=== PATIENT | male | born 1980 | race American Indian/Alaskan Native ===

== ENCOUNTER 2017-04-09 22:35 | Emergency (ER) | payer SELFPAY ==
[2017-04-09 22:59] VITALS: BP 117/75
== END 2017-04-10 03:50 | disposition left against medical advice (07) ==
LOC: ED 22:35
DX: M79.89 Other specified soft tissue disorders (principal); Z53.21 Procedure and treatment not carried out due to patient leaving prior to being seen by health care provider

== ENCOUNTER 2017-04-12 23:35 | Inpatient (IN) | payer OTHER ==
--- NOTE | 2017-04-13 02:04 | XRay Report ---
FINAL REPORT EXAM: XR ELBOW 3+V RT HISTORY: infection not improving rt elbow TECHNIQUE: Three views of the right elbow PRIORS: None. FINDINGS: The bones are normally aligned and mineralized. The joint spaces are well-preserved. There is no evidence of acute fracture. There is posterior and lateral soft tissue. IMPRESSION: Posterior and lateral soft tissue swelling. No radiographic evidence of osteomyelitis
[2017-04-13] MEDS ORDERED: ZOFRAN IV ONE (02:40)
[2017-04-13] MEDS ORDERED: DILAUDID IV ONE (02:40)
[2017-04-13] MEDS ORDERED: CLEOCIN 900 MG/50 mL 900 MG/50 ML BAG IV ONE (02:40)
--- NOTE | 2017-04-13 02:40 | Emergency Department Report ---
- General Chief complaint: Skin/Abscess/Foreign Body Stated complaint: ELBOW SWOLLEN/INFECTED Time Seen by Provider: 04/13/17 02:39 Source: patient Mode of arrival: Ambulatory Limitations: No Limitations - History of Present Illness Initial comments: Patient here report that he has right elbow swelling with drainage. He states that he has some boils to his right armpit and right thigh. Patient said he had tattoos to his left arm 2 weeks ago and he had done over 3 days to his right upper extremity which was March 31, April 01 and 04/02/2017. He said that he noticed that his elbow was painful and draining pus and he went to urgent care 3 days ago where they put him on Bactrim DS and Tylenol 3 but he reports that he is not getting any better. He reports the pain to his elbow is 10 out of 10 and throbbing. Patient Tylenol 3 without any help. He reports portal to right axilla is only painful when it's touch and to left thigh painful to touch. Denies any history of any abscess. He denies any medical problem. He said his immunizations up-to-date. Patient is allergic to penicillin. Right elbow worse with movement better with rest. MD complaint: abscess/boil, discoloration Onset/Timin -: days(s) Tetanus Up to Date: yes Location: RUE (right elbow, right axilla), RLE (right thigh) Severity: severe Severity scale (0 -10): 10 Quality: constant, other (Lui) Consistency: constant Improves with: immobilization, rest Worsens with: palpation, movement Context: other (since that he got to 2 weeks ago to his right upper extremity.) Associated symptoms: athralgias (right elbow) Treatments Prior to Arrival: attempted to drain pus at, antibiotic, prescription analgesic - Related Data Home Medications Medication Instructions Recorded Confirmed Last Taken Bactrim DS TAB 1 tab PO BID 04/13/17 04/13/17 04/13/17 Prednisone 20 mg PO DAILY 04/13/17 04/13/17 04/13/17 Tylenol /Codeine # 3 tab 1 tab PO BID PRN 04/13/17 04/13/17 04/13/17 Allergies Allergy/AdvReac Type Severity Reaction Status Date / Time Penicillins Allergy Hives Verified 04/09/17 23:46 Abscess Boil HPI - HPI Chief Complaint: Skin/Abscess/Foreign Body Stated Complaint: ELBOW SWOLLEN/INFECTED Time Seen by Provider: 04/13/17 02:39 Home Medications: Home Medications Medication Instructions Recorded Confirmed Last Taken Bactrim DS TAB 1 tab PO BID 04/13/17 04/13/17 04/13/17 Prednisone 20 mg PO DAILY 04/13/17 04/13/17 04/13/17 Tylenol /Codeine # 3 tab 1 tab PO BID PRN 04/13/17 04/13/17 04/13/17 Allergies/Adverse Reactions: Allergies Allergy/AdvReac Type Severity Reaction Status Date / Time Penicillins Allergy Hives Verified 04/09/17 23:46 ED Review of Systems ROS: Stated complaint: ELBOW SWOLLEN/INFECTED Other details as noted in HPI Comment: All other systems reviewed and negative Constitutional: denies: chills, fever Respiratory: no symptoms reported Cardiovascular: denies: chest pain, palpitations, edema, syncope Gastrointestinal: denies: abdominal pain, nausea, vomiting Musculoskeletal: joint swelling, arthralgia. denies: back pain, myalgia Skin: other (boils) Neurological: denies: headache, weakness, numbness, paresthesias, confusion, abnormal gait, vertigo ED Past Medical Hx - Past Medical History Previous Medical History?: No - Surgical History Past Surgical History?: Yes Additional Surgical History: screw in neck - Family History Family history: no significant - Social History Smoking Status: Current Every Day Smoker Substance Use Type: Marijuana Other Social History: Single male - Medications Home Medications: Home Medications Medication Instructions Recorded Confirmed Last Taken Type Bactrim DS TAB 1 tab PO BID 04/13/17 04/13/17 04/13/17 History Prednisone 20 mg PO DAILY 04/13/17 04/13/17 04/13/17 History Tylenol /Codeine # 3 tab 1 tab PO BID PRN 04/13/17 04/13/17 04/13/17 History ED Physical Exam - General Limitations: No Limitations General appearance: alert, in no apparent distress - Head Head exam: Present: atraumatic, normocephalic, normal inspection - Eye Eye exam: Present: normal appearance, PERRL, EOMI. Absent: periorbital swelling , periorbital tenderness Pupils: Present: normal accommodation - ENT ENT exam: Present: normal exam, normal orophraynx, mucous membranes moist, TM's normal bilaterally, normal external ear exam - Neck Neck exam: Present: normal inspection, full ROM. Absent: tenderness, meningismus, lymphadenopathy - Respiratory Respiratory exam: Present: normal lung sounds bilaterally. Absent: respiratory distress, chest wall tenderness - Cardiovascular Cardiovascular Exam: Present: regular rate, normal rhythm, normal heart sounds - GI/Abdominal GI/Abdominal exam: Present: soft, normal bowel sounds. Absent: distended, tenderness, guarding, rebound, rigid - Extremities Exam Extremities exam: Present: tenderness, normal capillary refill, joint swelling. Absent: normal inspection, full ROM, pedal edema, calf tenderness - Expanded Upper Extremity Exam Right General: Absent: normal inspection, laceration, abrasion, nail injury (#), foreign body, amputation, avulsion Shoulder Exam: Present: normal inspection, full ROM. Absent: tenderness, swelling, abrasion, laceration, ecchymosis, deformity, crepidus, dislocation, erythema, tenderness over AC joint Upper Arm exam: Present: normal inspection, full ROM. Absent: tenderness, swelling, abrasion, laceration, ecchymosis, deformity, crepidus, dislocation, erythema Elbow exam: Present: full ROM (FROM but painful with flexion and extension), tenderness, swelling, erythema, pain w/ pronation/supination, tenderness over radial head. Absent: normal inspection, abrasion, laceration, ecchymosis, deformity, crepidus, dislocation, effusion Forearm Wrist exam: Present: full ROM, swelling (mild swelling to proximal posterior forearm). Absent: normal inspection, tenderness, abrasion, laceration , ecchymosis, deformity, crepidus, dislocation, erythema, tenderness over anatomical snuff box, pain with axial thumb loading Hand Wrist exam: Present: normal inspection, full ROM. Absent: tenderness, swelling, abrasion, laceration, ecchymosis, deformity, crepidus, dislocation, erythema, amputation, nail avulsion, subungual hematoma Neuro motor exam: Present: wrist extension intact, thumb opposition intact, thumb IP flexion intact, thumb adduction intact, fingers 2-5 abduction intact Neurosensory exam: Present: 2-point discrimination, radial nerve intact, ulnar nerve intact, median nerve intact Vascular: Present: normal capillary refill, radial pulse, brachial pulse, ulnar pulse. Absent: vascular compromise, Pallo, pulse deficit radial art, pulse deficit ulnar art, pulse deficit brachial art - Back Exam Back exam: Present: normal inspection, full ROM. Absent: tenderness, CVA tenderness (R), CVA tenderness (L), muscle spasm, paraspinal tenderness, vertebral tenderness, rash noted - Neurological Exam Neurological exam: Present: alert, oriented X3, normal gait, reflexes normal. Absent: motor sensory deficit - Psychiatric Psychiatric exam: Present: normal affect, normal mood - Skin Skin exam: Present: warm, dry, erythema, other (multiple abscess) - Expanded Skin Exam Expanded Type of lesion: Present: abscess (patient with abscess to right elbow with 2 small open in that straining scant pus. Right elbow with minimal fluctuance minimal induration. Tender to palpate and very warm to touch comparing to left elbow. No restriction in movement. Elbow is painful when flexed and extended. Patient also with abscess to left axilla that indurated, dime size and tender to palpate, abortus size abscess to right proximal thigh that indurated nonfluctuant at erythema and tender to palpate.) Distribution of rash: RUE (right elbow and right axilla), RLE (right proximal thigh) Description of rash: Present: size (dime size area to right axilla and quarter size area to right proximal thigh), tenderness, erythematous, swelling, discharge (scant amount of drainage from right elbow), indurated (right axilla and right proximal thigh). Absent: petechial, purpuic, fluctuant ED Course Vital Signs 04/13/17 04/13/17 04/13/17 00:20 05:13 06:40 Temperature 98.6 F Pulse Rate 91 H 68 Respiratory 16 18 18 Rate Blood Pressure 110/66 Blood Pressure 110/66 131/78 [Left] O2 Sat by Pulse 100 98 98 Oximetry - Reevaluation(s) Reevaluation #1: 04/13/17 04:06 Patient received clindamycin 900 mg IV for infection, CBC revealed white count of 22 patient already had blood cultures collected and sent. Lab work drawn. Patient with abscesses and infection. I discussed with Dr. Mckeon patient presentation, lab and x-ray report and it was decided the patient will be admitted. This was discussed with patient and he reluctantly agreed. IV fluid normal saline started at 125 cc an hour Reevaluation #2: 04/13/17 04:[address] Avina who is the hospitalist and agrees to admit patient to inpatient for treatment of cellulitis, abscess. Reevaluation #3: 04/13/17 05:18 Patient is stable and receiving IV fluid. Lactic acid collected. No change in physical findings. 04/13/17 05:19 ED Medical Decision Making - Lab Data Result diagrams: 04/13/17 02:23 04/13/17 02:23 Lab Results 04/13/17 04/13/17 Range/Units 02:23 02:23 WBC 22.0 H (4.5-11.0) K/mm3 RBC 4.33 (3.65-5.03) M/mm3 Hgb 14.2 (11.8-15.2) gm/dl Hct 42.5 (35.5-45.6) % MCV 98 H (84-94) fl MCH 33 H (28-32) pg MCHC 33 (32-34) % RDW 14.2 (13.2-15.2) % Plt Count 304 (140-440) K/mm3 Sodium 138 (137-145) mmol/L Potassium 4.1 (3.6-5.0) mmol/L Chloride 98.8 (98-107) mmol/L Carbon Dioxide 23 (22-30) mmol/L Anion Gap 20 mmol/L BUN 18 (9-20) mg/dL Creatinine 0.8 (0.8-1.5) mg/dL Estimated GFR > 60 ml/min BUN/Creatinine Ratio 22.50 % Glucose 80 (75-100) mg/dL Calcium 9.2 (8.4-10.2) mg/dL Blood Cultures are pending - Radiology Data Radiology results: report reviewed Three-view x-ray of the right elbow reveals posterior and lateral soft tissue swelling no radiographic evidence of osteomyelitis. No fracture or dislocation noted. - Medical Decision Making ED course: Here with right elbow abscess after getting in tattoo he said he noticed that the site was getting infected and he went to urgent care 3 days ago and he was placed on Bactrim DS and Tylenol No. 3 and F this is not getting any better. He is also complaining of abscess to his right axilla and right upper thigh area. area to right axilla is dime size and indurated without any fluctuance and area to right thigh cellulitic with small opening to Center positive induration and no fluctuance. Patient with mild swelling to right elbow with 2 areas of open in an scant amount of serous draining. Right elbow when compared to left elbow is increase in temperature and mild erythema. He should have with full flexion and extension of elbow but he said it's very painful and worse with palpation. I spoke with Dr. Mckeon regarding patient presentation, lab findings and x-ray results and it was decided the patient will be admitted inpatient for treatment with IV antibiotic. This was discussed with patient and he was reluctant and finally decided that he will accept decision for him to be admitted and treated. All labs, x-rays result was discussed with patient. Patient refuses lactic acid briefly but then he agreed to have levels drawn. Patient said that he got infected from having tatoo to his right upper extremity over a 3 day. Diagnostic/labs: CBC revealed patient with white count elevated at 22, MCH/MCV mild elevated. Patient with slight shift to the left suggesting bacterial infection. BMP is normal, calcium is normal, lactic acid normal. Blood cultures 2 are pending. X-ray of right elbow reveals soft tissue swelling without any osteomyelitis/or bony abnormality Assessment/plan: 1. Cellulitis and abscess right upper extremity,elbow-areas already drained in and patient started on clindamycin 900 mg IV. IV fluid normal saline started at 1 25 mL an hour 2. Cellulitis multiple sites to right thigh and left axilla not ready to be drained due to no fluctuance-IV antibiotic infusing and warm compresses the site to facilitate soft then 3. Arthralgia right elbow-patient given Dilaudid 1 mg IV and Zofran 4 mg IV for relief of pain. 4. Leukocytosis more than likely secondary to bacterial infection-patient on IV antibiotic. 5-decision was made to admit patient to inpatient hospital for treatment of cellulitis and abscess that failed outpatient therapy. Dr. Yara gaoist came to saw patient and admitted patient to hospital. Patient remained stable throughout ED course with normal vital signs and afebrile. He has no signs of sepsis and additional labs and medication ordered by Dr. Avina. Pt transferred to medical floor in stable condition. - Differential Diagnosis septic joint, osteomyelitis, cellulitis and abscess Critical care attestation.: If time is entered above; I have spent that time in minutes in the direct care of this critically ill patient, excluding procedure time. ED Disposition Clinical Impression: Cellulitis and abscess of unspecified site, Cellulitis of multiple sites, Arthralgia of right elbow Leukocytosis, unspecified Qualifiers: Leukocytosis type: unspecified Qualified Code(s): D72.829 - Elevated white blood cell count, unspecified Disposition: OP ADMIT IP TO THIS HOSP Is pt being admited?: Yes Does the pt Need Aspirin: No Condition: Stable
[2017-04-13] MEDS ORDERED: MARCAINE 0.5% INFILTRATI ONE (02:42)
[2017-04-13] MEDS ORDERED: NACL 0.9% IR ONE (02:42)
[2017-04-13 02:56] LABS: Hematocrit 42.5 % (35.5-45.6); Hemoglobin 14.2 gm/dl (11.8-15.2); Mean Corpuscular HGB Conc 33 % (32-34); Mean Corpuscular Hemoglobin 33 pg (28-32); Mean Corpuscular Volume 98 fl (84-94); Platelet Count 304 K/mm3 (140-440); Red Blood Count 4.33 M/mm3 (3.65-5.03); Red Cell Distribution Width 14.2 % (13.2-15.2)
[2017-04-13 03:13] LABS: Anion Gap 20 mmol/L; Blood Urea Nitrogen 18 mg/dL (9-20); Calcium 9.2 mg/dL (8.4-10.2); Carbon Dioxide 23 mmol/L (22-30); Chloride 98.8 mmol/L (98-107); Glucose 80 mg/dL (75-100); Potassium 4.1 mmol/L (3.6-5.0); Sodium 138 mmol/L (137-145)
[2017-04-13 04:19] LABS: Basophils % (Manual) 0 % (0.0-1.8); Blastocytes % (Manual) 0 %; Diff Status Complete; Eosinophils % (Manual) 0 % (0.0-4.3); Platelet Estimate Consistent w Auto; RBC Morphology Normal
[2017-04-13] MEDS: NACL 0.9% 1000 ML 1,000 ML IV SCH ×2 (04:28→15:09)
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
[2017-04-13] MEDS ORDERED: ZOFRAN IV PRN (05:49)
[2017-04-13] MEDS ORDERED: TYLENOL PO PRN (05:49)
[2017-04-13] MEDS ORDERED: MILK OF MAGNESIA PO PRN (05:49)
[2017-04-13] MEDS ORDERED: DULCOLAX PR PRN (05:49)
[2017-04-13] MEDS ORDERED: VANCOMYCIN VIAL IV SCH (06:00)
[2017-04-13] MEDS ORDERED: VANCOMYCIN PHARMACY TO DOSE IV SCH (06:00)
[2017-04-13] MEDS ORDERED: NACL 0.9% 1000 ML 1,000 ML IV SCH (06:00)
[2017-04-13] MEDS: VANCOMYCIN 1,250 MG in NACL 0.9% 250ML 250 ML IV SCH ×2 (08:03→20:02)
[2017-04-13] MEDS ORDERED: LOVENOX SUB-Q SCH (10:00)
[2017-04-13] MEDS: LOVENOX SUB-Q SCH (11:35)
[2017-04-13] MEDS: PERCOCET 5/325 PO PRN ×3 (11:41→22:10)
--- NOTE | 2017-04-13 12:15 | Event Note ---
Date: 04/13/17 Patient is 36 yo with cellulitis and sepsis. Continue Vancomycin. Continue current management.
--- NOTE | 2017-04-14 03:28 | Admit Criteria Form ---
Admission Criteria Documentation: SEPSIS and OTHER FEBRILE ILLNESS, W/O FOCAL INFECTION Clinical Indications for Admission to Inpatient Care ( Place 'X' for any and all applicable criteria): Admission is indicated for ANY ONE of the following (1)(2)(3)(4): [ ] I. Bacteremia [X]II. Suspected or identified specific infection requiring hospitalization (eg, meningitis, endocarditis) [ ]III. Hemodynamic instability [ ]IV. Altered mental status [ ]V. Failure or unavailability of outpatient antimicrobial treatment [ ]. Hypoxemia [ ]VII. Seizures [ ]VIII. High-risk febrile neutropenia [ ]IX. Need for parenteral antibiotic in patient who is likely to abuse vascular access device (eg, injection drug user) [A](7) [ ]X. Temperature greater than 104.9 degrees F (40.5 degrees C) (oral) [ ]XI. Inpatient admission required rather than observation care because of ANY ONE of the following: [ ]1) Specific infection identified that is too severe for outpatient treatment or observation care trial [ ]2) Metabolic disorder (eg, hypoglycemia, hyperglycemia, metabolic acidosis) that is severe or persistent [ ]3) Temperature greater than 103.1 degrees F (39.5 degrees C) ( oral) that is not responsive to observation care treatment [ ]4) IV fluid to replace significant ongoing (eg, for over 24 hours) losses (> 3 L/m2 per day) [ ]5) Supplemental oxygen or respiratory treatments for over 24 hours that is performable only in acute inpatient setting [ ]6) Parenteral nutrition regimen need that must be implemented on inpatient basis [ ]7) Strict or protective (eg, laminar flow) isolation [ ]8) Other condition, treatment or monitoring requiring inpatient admission Extended stay beyond goal length of stay may be needed for(1)(3) [ ]a) Sepsis or septic shock(22) [ ]b) Positive blood cultures [ ]c) Insufficient oral intake [ ]d) High-risk febrile neutropenia(29)(30) [ ]e) Continued fever and clinical instability [ ]f) Clinically active comorbid illness (e.g,heart failure, renal failure , diabetes) The original [facility] content created by Linda Stuart has been revised. The portions of the content which have been revised are identified through the use of italic text or in bold, and Linda Stuart has neither reviewed nor approved the modified material. All other unmodified content is copyright [facility]. Please see references footnoted in the original [facility] edition 2016 Admission Criteria Met: Yes
[2017-04-14] MEDS: PERCOCET 5/325 PO PRN ×4 (04:54→22:08)
[2017-04-14] MEDS: NACL 0.9% 1000 ML 1,000 ML IV SCH (04:56)
[2017-04-14] MEDS: VANCOMYCIN 1,250 MG in NACL 0.9% 250ML 250 ML IV SCH ×2 (05:35→18:37)
[2017-04-14] MEDS: LOVENOX SUB-Q SCH (09:47)
[2017-04-14 09:49] LABS: Basophils % (Auto) 0.3 % (0.0-1.8); Eosinophils % (Auto) 0.2 % (0.0-4.3); Hematocrit 38.9 % (35.5-45.6); Hemoglobin 12.9 gm/dl (11.8-15.2); Mean Corpuscular HGB Conc 33 % (32-34); Mean Corpuscular Hemoglobin 33 pg (28-32); Mean Corpuscular Volume 98 fl (84-94); Platelet Count 259 K/mm3 (140-440); Red Blood Count 3.95 M/mm3 (3.65-5.03); Red Cell Distribution Width 13.6 % (13.2-15.2); White Blood Count 18.5 K/mm3 (4.5-11.0)
[2017-04-14 10:03] LABS: Anion Gap 17 mmol/L; Blood Urea Nitrogen 10 mg/dL (9-20); Calcium 8.5 mg/dL (8.4-10.2); Carbon Dioxide 25 mmol/L (22-30); Chloride 99.6 mmol/L (98-107); Glucose 74 mg/dL (75-100); Potassium 3.6 mmol/L (3.6-5.0); Sodium 138 mmol/L (137-145)
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
[2017-04-15 05:31] LABS: Hematocrit 40.2 % (35.5-45.6); Hemoglobin 13.2 gm/dl (11.8-15.2); Mean Corpuscular HGB Conc 33 % (32-34); Mean Corpuscular Hemoglobin 32 pg (28-32); Mean Corpuscular Volume 98 fl (84-94); Platelet Count 256 K/mm3 (140-440); Red Blood Count 4.11 M/mm3 (3.65-5.03); Red Cell Distribution Width 13.4 % (13.2-15.2); White Blood Count 16.7 K/mm3 (4.5-11.0)
[2017-04-15 05:52] LABS: Anion Gap 21 mmol/L; Blood Urea Nitrogen 12 mg/dL (9-20); Calcium 8.4 mg/dL (8.4-10.2); Carbon Dioxide 22 mmol/L (22-30); Chloride 100.4 mmol/L (98-107); Glucose 62 mg/dL (75-100); Sodium 139 mmol/L (137-145)
[2017-04-15] MEDS: NACL 0.9% 1000 ML 1,000 ML IV SCH (06:19)
[2017-04-15] MEDS: VANCOMYCIN 1,250 MG in NACL 0.9% 250ML 250 ML IV SCH ×2 (06:19→17:10)
[2017-04-15] MEDS ORDERED: D50W (25GM) IV PRN (06:56)
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
[2017-04-15] MEDS: LOVENOX SUB-Q SCH (09:03)
[2017-04-15] MEDS ORDERED: D5NS 1,000 ML IV SCH (10:00)
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
[2017-04-15] MEDS ORDERED: LACTATED RINGERS 1,000 ML IV SCH (11:11)
[2017-04-15] MEDS ORDERED: PEPCID PO NR (11:11)
[2017-04-15] MEDS ORDERED: VERSED IV NR (11:11)
--- NOTE | 2017-04-15 11:11 | Anesthesia Day of Surgery ---
Anesthesia Day of Surgery - Day of Surgery Patient Examined: Yes Patient H&P Reviewed: Yes Patient is NPO: Yes
[2017-04-15] MEDS ORDERED: DILAUDID IV PRN (11:12)
--- NOTE | 2017-04-15 11:37 | Progress Note ---
Assessment and Plan Cellulitis right elbow With abscess. - Continue Vancomycin iv. - Consulted Dr. Bruce Castellanos, - s/p debridement with incision and drainage today. - wound cx growing Strep Aureus, wait for final result Leukoctosis secondary to cellulitis. - This is improving. WBC 16.7 today from 22 on admission. Fever due to cellulitis. - now resolved Sepsis, POA - likely from cellulitis and abscess DVT prophylaxis with Lovenox. Microbiology 04/15/17 Unknown Elbow - Right Surgical Culture - Preliminary 04/14/17 14:00 Arm - Right Wound Culture - Preliminary Staphylococcus Aureus 04/13/17 02:31 Peripheral/Venous Blood Culture - Preliminary NO GROWTH AFTER 48 HOURS 04/13/17 02:23 Peripheral/Venous Blood Culture - Preliminary NO GROWTH AFTER 48 HOURS Subjective Date of service: 04/15/17 Interval history: Pt seen and examined s/p I and D today Objective - Exam Narrative Exam: Gen appearance :Not in acute distress, HEENT: Normocephalic, atraumatic Neck: Supple, no JVD Lungs: Clear to auscultation bilaterally, no crackles, or wheezes. Heart: S1 and S2 regular, no murmurs, no gallops, rub Abdomen : Soft, non-tender, non-distended, normal bowel sounds Extremities : Right elbow shows tenderness, with wound dressing Neuro: Awake,alert,oriented x3. no focal neurological signs - Constitutional Vitals: Vital Signs - 12hr 04/15/17 04/15/17 07:00 10:55 Temperature 99.8 F H 99 F Pulse Rate 65 62 Respiratory 15 16 Rate Blood Pressure 120/65 131/66 O2 Sat by Pulse 98 99 Oximetry - Labs CBC & Chem 7: 04/15/17 04:24 04/15/17 04:24 Labs: Abnormal lab results 04/15/17 04/15/17 Range/Units 04:24 04:24 WBC 16.7 H (4.5-11.0) K/mm3 MCV 98 H (84-94) fl Glucose 62 L (75-100) mg/dL
[2017-04-15] MEDS ORDERED: SUBLIMAZE ONE (11:45)
[2017-04-15] MEDS ORDERED: VERSED ONE (11:45)
[2017-04-15] MEDS ORDERED: DIPRIVAN 10 MG/ML IV ONE (11:46)
[2017-04-15] MEDS ORDERED: XYLOCAINE 1% 20 mL ONE (12:03)
[2017-04-15] MEDS ORDERED: MARCAINE-EPI 0.5%-1:200,000 INFILTRATI ONE ×2 (12:04→12:34)
--- NOTE | 2017-04-15 13:08 | Post Anesthesia Evaluation ---
- Post Anesthesia Evaluation Patient Participated: Yes Airway Patent: Yes Stable Respiratory Function: Yes Nausea/Vomiting: No Temp > 96.8F: Yes Pain Manageable: Yes Adequeate Hydration: Yes Anesthesia Complications: No Block Receding Appropriately: Not Applicable Patient on Ventilator: No
--- NOTE | 2017-04-15 13:24 | Post Operative Note ---
Pre-op diagnosis: Right elbow abscess Post-op diagnosis: same Anesthesia: MAC Rnfa: EDDIE ANNE Estimated blood loss: minimal Pathology: none Specimen disposition: to lab (C&S) Condition: stable Disposition: PACU
[2017-04-15] MEDS: PERCOCET 5/325 PO PRN ×3 (14:13→22:24)
[2017-04-15] MEDS ORDERED: NACL 0.9% 1000 ML 1,000 ML IV SCH (15:00)
[2017-04-16 04:50] LABS: Basophils % (Auto) 0.4 % (0.0-1.8); Eosinophils % (Auto) 1.2 % (0.0-4.3); Hematocrit 37.4 % (35.5-45.6); Mean Corpuscular HGB Conc 35 % (32-34); Mean Corpuscular Hemoglobin 33 pg (28-32); Mean Corpuscular Volume 96 fl (84-94); Platelet Count 247 K/mm3 (140-440); Red Blood Count 3.88 M/mm3 (3.65-5.03); Red Cell Distribution Width 13.1 % (13.2-15.2); White Blood Count 11.3 K/mm3 (4.5-11.0)
[2017-04-16] MEDS: VANCOMYCIN 1,250 MG in NACL 0.9% 250ML 250 ML IV SCH (05:16)
--- NOTE | 2017-04-16 08:51 | Progress Note ---
Assessment and Plan 1) Wound care nurse consulted. 2) Pt can be discharged from my perspective. 3) F/u with PCP or Wound Care clinic - Patient Problems (1) Cellulitis and abscess of unspecified site Onset Date: 03/31/17 Current Visit: Yes Status: Acute Subjective Date of service: 04/16/17 Patient Reports: Positive: no new complaints Objective Vital Signs - 12hr 04/15/17 04/15/17 04/15/17 22:00 22:24 23:00 Temperature 98.9 F Pulse Rate 65 Respiratory 18 18 18 Rate Respiratory 18 Rate [Right Elbow] Blood Pressure 123/76 O2 Sat by Pulse 98 Oximetry - Additional Exam Right elbow dressing is clean, dry and intact. - Labs 04/16/17 04:22 04/15/17 04:24
--- NOTE | 2017-04-16 08:59 | Procedure Note ---
Date of procedure: 04/15/17 Pre-op diagnosis: Right elbow abscess Post-op diagnosis: same Procedure: Complicated I&D of right elbow abscess Description of procedure: Pt was placed supine on the OR table. He was sedated intravenously by anesthesia. Right upper extremity was prepped and draped. Skin and SQ tissue about the right elbow abscess was infiltrated with 4 ml of 0.5% Marcaine with epinephrine. An incision was made over the most fluctuant portion of the abscess. About 5 ml of purulent, cloudy non-foul smelling pus was drained. This was sent for gram stain and aerobic and anaerobic cultures. The wound was probed with my index finger to break up any loculations. it was then irrigated with saline and packed open with a portion of Kerlix roll. This was followed with dry 4X4's, a Kerlix wrap and Coban. Pt tolerated the procedure well. He was taken to PACU in stable condition. This is a full operative note. Anesthesia: MAC Surgeon: EDDIE ANNE Estimated blood loss: minimal Pathology: none Specimen disposition: to lab Condition: stable Disposition: PACU
[2017-04-16 09:25] VITALS: BP 121/83
[2017-04-16] MEDS: LOVENOX SUB-Q SCH (09:29)
--- NOTE | 2017-04-16 09:45 | Discharge Summary ---
Providers - Providers Date of Admission: 04/13/17 05:49 Date of discharge: 04/16/17 Attending physician: MARIFER BRONSON 04/13/17 14:51 Consult to Wound/ET Nurse [CONS] Routine Reason For Exam: wound eval 04/14/17 12:46 Consult to Physician [CONS] Routine Consulting Provider: EDDIE CASTELLANOS Reason For Exam: right elbow cellulitis,wound Place consult to:: DR. CASTELLANOS Notified:: OFFICE Phone number called:: [phone] Was contact made?: Yes If yes, spoke with:: QASIM Time called:: 13:19 Comment:: CRISTIANE NOTIFIED Primary care physician: [employer] Hospitalization Condition: Stable Hospital course: Discharge diagnosis and management: Cellulitis right elbow With abscess. - Continue Vancomycin iv. - Consulted Dr. Eddie Castellanos, - s/p debridement with incision and drainage today. - wound cx growing Strep Aureus, wait for final result Leukoctosis secondary to cellulitis. - This is improving. WBC 16.7 today from 22 on admission. Fever due to cellulitis. - now resolved Sepsis, POA - likely from cellulitis and abscess DVT prophylaxis with Lovenox. Disposition: DC-01 TO HOME OR SELFCARE Time spent for discharge: 32 minutes Core Measure Documentation - Palliative Care Palliative Care/ Comfort Measures: Not Applicable - Core Measures Any of the following diagnoses?: none Exam - Physical Exam Narrative exam: Gen appearance :Not in acute distress, HEENT: Normocephalic, atraumatic Neck: Supple, no JVD Lungs: Clear to auscultation bilaterally, no crackles, or wheezes. Heart: S1 and S2 regular, no murmurs, no gallops, rub Abdomen : Soft, non-tender, non-distended, normal bowel sounds Extremities : Right elbow shows tenderness, with wound dressing Neuro: Awake,alert,oriented x3. no focal neurological signs - Constitutional Vitals: Temp Pulse Resp BP Pulse Ox 100.5 F H 65 18 121/83 98 04/16/17 07:15 04/16/17 07:15 04/16/17 07:15 04/16/17 07:15 04/15/17 23:00 Plan Activity: advance as tolerated Diet: regular Wound: change dressing, per wound nurse instructions Follow up with: PRIMARY CARE, [Primary Care Provider] - 3-5 Days Prescriptions: Clindamycin [Clindamycin CAP] 600 mg PO BID #14 capsule
[2017-04-16] MEDS: PERCOCET 5/325 PO PRN (09:59)
== END 2017-04-16 12:15 | disposition home or self-care (01) | DRG 854 ==
LOC: ED 23:35 → 3A 04-13 05:49
PROVIDERS: ADMIT Internal Medicine; ATTEND Internal Medicine
PROC: 0J9G0ZZ Drainage of Right Lower Arm Subcutaneous Tissue and Fascia, Open Approach (ICD-10-PCS; principal; 2017-04-15)
DX: A41.9 Sepsis, unspecified organism (principal); L03.113 Cellulitis of right upper limb; F12.90 Cannabis use, unspecified, uncomplicated; F17.200 Nicotine dependence, unspecified, uncomplicated; Z88.0 Allergy status to penicillin; Z82.49 Family history of ischemic heart disease and other diseases of the circulatory system
CPT/HCPCS: 36415; 80048; 80202; 82140; 82962; 85007; 85025; 85027; 86403; 87040; 87075; 87076; 87116; 87186; 96361; 96365; J1170; J1650; J2250; J2405; J2704; J3010; J3370; J7030; J7042; J7050; J7120